=== PATIENT | male | born 1955 | race Caucasian/White ===

== ENCOUNTER → 2019-07-11 | Outpatient (CLI) | payer BC, OTHER ==
--- NOTE | 2019-07-13 13:26 | CT ---
EXAM DESCRIPTION: Abdoment/Pelvis w/o Contrast: Computed Tomography. CLINICAL HISTORY: 63 years Male DISORDER OF ADRENAL GLAND COMPARISON: None. TECHNIQUE: Spiral-axial scans 5 x 5 mm intervals through the abdomen and pelvis without oral or IV contrast. Coronal and sagittal 2.0 mm reconstructions. Axial - 1.25 mm reconstructions.Total Exam DLP: 1064.9 mGy-cm. This exam was performed according to our departmental CT dose-optimization program which includes automated exposure control, adjustment of the mA and/or kV according to patient size and/or use of iterative reconstruction technique; to reduce radiation dose to as low as reasonably achievable (ALARA). FINDINGS: Liver, stomach, spleen, and adrenal glands: 2.1 x 2.1 cm circumscribed homogeneous mass in the right adrenal gland superiorly abutting the caudate lobe of the liver. Density of the mass is -1 Hounsfield units. No calcifications. Normal density of the surrounding fat. Left adrenal gland is unremarkable. Inhomogeneous density of the liver with right lobe 15 cm craniocaudal. Stomach and remaining solid organs are negative. Pancreas, Gallbladder, and Ducts: Fatty infiltration of the pancreas with no calcification or mass. Surgical clips gallbladder fossa with no fluid. Normal caliber of the duct. Kidneys and Ureters: Low-density and calcification in the posterior inferior cortex possibly calcification in the cyst versus mass. 2 mm stone upper collecting system left kidney. Physiologic stranding perirenal bilaterally. Mesentery: Negative. Aorta: Unremarkable. Small Bowel: Negative. Terminal Ileum/Cecum: Normal caliber. Short appendix. Normal surrounding fatty density. Colon: Fecal material and gas proximal to thirds minimal redundancy of the sigmoid colon with distention of the rectosigmoid by fecal matter. No complications. Pelvic Organs: Calcification in the prostate gland abutting the base of the urinary bladder and seminal vesicles. No free fluid. No significant bladder wall thickening no internal radiodense calcifications or stones. Spine and Bony Pelvis: Arthrosis bilateral hips and impingement bilateral femoral neck impingement. Assuming the inferior rib pair are the 12th ribs, there are 4 lumbar type vertebra and a sacralized L5 vertebra with right lateral articulation with the sacral ala and right iliac bone. L5-S1 and L2-L3 disc space narrowing. Abdominal Wall/Back Soft Tissues: Diastases of the anterior abdominal wall at the umbilicus but no definite bowel or mesenteric hernia. Lung bases and pleura: Minimal mosaic density in posterior bilateral dependent atelectasis. IMPRESSION: 1. 2.1 x 2.1 cm circumscribed right adrenal mass with fatty density and no surrounding fatty reaction suggestive of a adrenal adenoma. 2. Ill-defined low-density in the mid inferior right kidney which may represent a cyst versus mass. Recommend CT postcontrast evaluation of the right adrenal gland and kidney utilizing adrenal protocol. 2 mm nonobstructing stone upper collecting system left kidney. 3. Prostate gland with calcification abutting the urinary bladder and seminal vesicles. No free fluid. 4. Sacralized L5 vertebra with asymmetric involvement. This can be a cause of abnormal lumbosacral biomechanics and low back pain. Electronically signed by: Alexander Albarado MD 07/13/2019 1:24 PM LO[employer]ING [employer]PER[employer]
== END ==
LOC: CT 13:34
PROVIDERS: ATTEND Family Medicine
DX: E27.9 Disorder of adrenal gland, unspecified (principal); N28.9 Disorder of kidney and ureter, unspecified; N20.0 Calculus of kidney; N42.0 Calculus of prostate; Q76.49 Other congenital malformations of spine, not associated with scoliosis

== ENCOUNTER → 2019-10-30 | Outpatient (CLI) | payer SELFPAY | LOC: LAB.O 08:37 | PROVIDERS: ATTEND Internal Medicine Nephrology | DX: N18.9 Chronic kidney disease, unspecified (principal); Z79.899 Other long term (current) drug therapy ==

== ENCOUNTER → 2019-10-30 | Outpatient (CLI) | payer OTHER | LOC: LAB.O 09:13 | PROVIDERS: ATTEND Internal Medicine Nephrology | DX: N18.9 Chronic kidney disease, unspecified (principal); Z79.899 Other long term (current) drug therapy ==